=== PATIENT | female | born 1960 | race Two or more races ===

== ENCOUNTER 2021-11-13 10:57 | Day surgery (SDC) | payer OTHER | END 2021-11-13 22:15 | disposition home or self-care (01) | LOC: CIR.AMB 10:57 | PROVIDERS: ATTEND Obstetrics & Gynecology | DX: D06.0 Carcinoma in situ of endocervix (principal) ==

== ENCOUNTER 2022-01-13 10:15 | Inpatient (IN) | payer OTHER ==
[~2022-01-13] VITALS: Ht 165.1 cm; Wt 68.0 kg
== END 2022-01-17 14:42 | disposition home or self-care (01) | DRG 743 ==
LOC: O/R 01-15 06:57 → SURH 01-15 10:15 → OB/GYN 01-15 15:52
PROVIDERS: ADMIT Obstetrics & Gynecology; ATTEND Obstetrics & Gynecology
PROC: 0UT70ZZ Resection of Bilateral Fallopian Tubes, Open Approach (ICD-10-PCS; 2022-01-15)
PROC: 0UT20ZZ Resection of Bilateral Ovaries, Open Approach (ICD-10-PCS; 2022-01-15)
PROC: 0UT90ZZ Resection of Uterus, Open Approach (ICD-10-PCS; principal; 2022-01-15 10:45)
DX: D25.1 Intramural leiomyoma of uterus (principal); D25.0 Submucous leiomyoma of uterus; D25.2 Subserosal leiomyoma of uterus; Z20.822 Contact with and (suspected) exposure to COVID-19; N72 Inflammatory disease of cervix uteri; D27.1 Benign neoplasm of left ovary; N80.0 Endometriosis of uterus